=== PATIENT | male | born 1955 | race Asian ===

== ENCOUNTER 2016-11-16 08:58 | Outpatient (CLI) | payer OTHER ==
[2016-11-16 09:57] LABS: ALBUMIN 4.2 g/dL (3.4-4.8); CALCIUM 9.2 mg/dL (8.4-11.0); CREATININE 1.13 mg/dL (0.55-1.30); TOTAL BILIRUBIN 0.8 mg/dL (0.0-1.0); URIC ACID 7.8 mg/dL (2.4-7.0)
[2016-11-17 13:33] LABS: HEMOGLOBIN A1C 6.8 % (4.8-5.6)
[2016-11-18 19:10] LABS: CREATININE, URINE 66.5 mg/dL (Not Estab.); MICROALBUMIN URINE RANDOM < 3.0 ug/mL (Not Estab.); MICROALBUMIN/CREAT RATIO, UR <4.5 mg/g creat (0.0-30.0)
== END 2016-11-17 17:34 | disposition home or self-care (01) ==
LOC: SLB 08:58
PROVIDERS: ATTEND Internal Medicine
DX: Z00.00 Encounter for general adult medical examination without abnormal findings (principal)
CPT/HCPCS: 36415; 80053; 80061; 82043; 82570; 83036; 84153; 84550-TC; 85014-TC

== ENCOUNTER 2017-04-17 07:43 | Outpatient (CLI) | payer OTHER ==
[2017-04-17 08:42] LABS: ALBUMIN 4.2 g/dL (3.4-4.8); CREATININE 1.04 mg/dL (0.55-1.30); POTASSIUM 4.4 mmol/L (3.5-5.1); TOTAL BILIRUBIN 1.1 mg/dL (0.0-1.0); TOTAL PROTEIN, SERUM 7.6 g/dL (6.4-8.3)
== END 2017-04-17 19:51 | disposition home or self-care (01) ==
LOC: SLB 07:43
PROVIDERS: ATTEND Internal Medicine
DX: Z00.01 Encounter for general adult medical examination with abnormal findings (principal); E11.9 Type 2 diabetes mellitus without complications; E78.5 Hyperlipidemia, unspecified; R79.89 Other specified abnormal findings of blood chemistry
CPT/HCPCS: 36415; 80053; 80061; 83036

== ENCOUNTER 2017-08-20 08:06 | Outpatient (CLI) | payer OTHER ==
[2017-08-20 09:00] LABS: ALBUMIN 4.2 g/dL (3.4-4.8); CALCIUM 8.7 mg/dL (8.4-11.0); CREATININE 1.01 mg/dL (0.55-1.30); POTASSIUM 4.6 mmol/L (3.5-5.1); TOTAL BILIRUBIN 0.8 mg/dL (0.0-1.0); URIC ACID 7.5 mg/dL (2.4-7.0)
== END 2017-08-20 20:14 | disposition home or self-care (01) ==
LOC: SLB 08:06
PROVIDERS: ATTEND Internal Medicine
DX: I10 Essential (primary) hypertension (principal); E11.9 Type 2 diabetes mellitus without complications; E78.5 Hyperlipidemia, unspecified
CPT/HCPCS: 36415; 80053; 80061; 83036; 84550-TC

== ENCOUNTER 2017-12-10 08:08 | Outpatient (CLI) | payer OTHER ==
[2017-12-10 08:48] LABS: CALCIUM 9.2 mg/dL (8.4-11.0); CREATININE 0.99 mg/dL (0.55-1.30); POTASSIUM 4.3 mmol/L (3.5-5.1); URIC ACID 8.1 mg/dL (2.4-7.0)
[2017-12-11 10:10] LABS: HEMOGLOBIN A1C 6.9 % (4.8-5.6)
== END 2017-12-10 19:49 | disposition home or self-care (01) ==
LOC: SLB 08:08
PROVIDERS: ATTEND Internal Medicine
DX: Z12.11 Encounter for screening for malignant neoplasm of colon (principal); E11.9 Type 2 diabetes mellitus without complications; E78.5 Hyperlipidemia, unspecified
CPT/HCPCS: 36415; 80048; 80061; 83036; 84153; 84550-TC

== ENCOUNTER 2018-04-14 07:20 | Outpatient (CLI) | payer OTHER ==
[2018-04-14 09:16] LABS: CALCIUM 9.2 mg/dL (8.4-11.0); CREATININE 0.93 mg/dL (0.55-1.30); POTASSIUM 3.5 mmol/L (3.5-5.1); TOTAL BILIRUBIN 1.1 mg/dL (0.0-1.0); URIC ACID 6.4 mg/dL (2.4-7.0)
== END 2018-04-14 20:48 | disposition home or self-care (01) ==
LOC: SLB 07:20
PROVIDERS: ATTEND Internal Medicine
DX: E11.9 Type 2 diabetes mellitus without complications (principal); E78.5 Hyperlipidemia, unspecified
CPT/HCPCS: 36415; 80053; 83036; 84550-TC

== ENCOUNTER 2018-08-18 10:58 | Outpatient (CLI) | payer OTHER ==
[2018-08-18 12:15] LABS: ALBUMIN 3.9 g/dL (3.4-4.8); CALCIUM 9.3 mg/dL (8.4-11.0); CREATININE 0.99 mg/dL (0.55-1.30); POTASSIUM 3.8 mmol/L (3.5-5.1); TOTAL BILIRUBIN 0.7 mg/dL (0.0-1.0)
[2018-08-19 15:06] LABS: CREATININE, URINE 141.5 mg/dL; MICROALBUMIN URINE RANDOM 10.2 ug/ml (NOT ESTABLISHED); MICROALBUMIN/CREAT RATIO, UR 7.2 MG/G CRE (0.0-30.0)
== END 2018-08-18 21:07 | disposition home or self-care (01) ==
LOC: SLB 10:58
PROVIDERS: ATTEND Internal Medicine
DX: E11.9 Type 2 diabetes mellitus without complications (principal); E78.5 Hyperlipidemia, unspecified
CPT/HCPCS: 36415; 80053; 80061; 82043; 82570; 83036

== ENCOUNTER 2023-07-19 07:41 | Emergency (ER) | payer OTHER ==
[~2023-07-19] VITALS: Ht 167.6 cm; Wt 81.6 kg
[2023-07-19 07:41] VITALS: BP_SYST 119; PULSE 80; RESP 19; TEMP 98.5; O2SAT 97
[2023-07-19] MEDS ORDERED: IBUP-1969 PO (12:46)
[2023-07-19 13:08] VITALS: BP_SYST 117; PULSE 79; RESP 19; TEMP 98.5; O2SAT 98
== END 2023-07-19 12:52 | disposition home or self-care (01) ==
LOC: SED 07:41
DX: M25.511 Pain in right shoulder (principal); Z79.899 Other long term (current) drug therapy
CPT/HCPCS: 73030; 93971; 99284